=== PATIENT | female | born 1990 | race Caucasian/White ===

== ENCOUNTER 2018-07-16 11:17 | Emergency (ER) | payer MEDICAID ==
[~2018-07-16] VITALS: Ht 167.6 cm; Wt 99.6 kg
[~2018-07-16 11:17] MED LIST: AMOX500C2 PO
[2018-07-16 11:24] VITALS: Ht 167.6 cm; Wt 99.6 kg
[2018-07-16] MEDS ORDERED: ONDANSETRON (ODT) 4 MG TAB ODT STA (12:32)
[2018-07-16] MEDS ORDERED: HYDROCODONE/APAP (5/325) TAB PO ONE (13:00)
[2018-07-16] MEDS ORDERED: IBUP-1542 PO (13:46)
[2018-07-16] MEDS ORDERED: HYDR-4011 PO (13:46)
[2018-07-16] MEDS ORDERED: ONDA8TAB14 PO (13:46)
--- NOTE | 2018-07-16 13:52 | ERD ---
ER Documentation Chief Complaint Chief Complaint Complains of abdominal that radiats to the left side since this am HPI 28-year-old female presents with right upper quadrant abdominal pain since this morning. She has nausea without vomiting. No started after eating. Denies any previous history of gallstones. Denies lower abdominal pain, fevers, diarrhea, urinary complaints. ROS All systems reviewed and are negative except as per history of present illness. Medications Home Meds Active Scripts Ibuprofen* (Motrin*) 600 Mg Tab, 600 MG PO Q6, #20 TAB Prov:MARIE SHEPPARD MD 07/16/18 Hydrocodone/Acetaminophen (Sallis 5-325 Tablet) 1 Each Tablet, 1 TAB PO Q6H PRN for PAIN, #12 TAB Prov:MARIE SHEPPARD MD 07/16/18 Ondansetron (Ondansetron Odt) 8 Mg Tab.rapdis, 8 MG PO Q6H PRN for NAUSEA AND/OR VOMITING, #10 TAB Prov:MRAIE SHEPPARD MD 07/16/18 Amoxicillin* (Amoxicillin*) 500 Mg Cap, 500 MG PO TID for 7 Days, CAP Prov:JUNIOR SYKES 05/11/15 Allergies Allergies: Coded Allergies: No Known Allergy (Unverified , 07/16/18) PMhx/Soc History of Surgery: No Anesthesia Reaction: No Hx Neurological Disorder: No Hx Respiratory Disorders: No Hx Cardiac Disorders: No Hx Psychiatric Problems: No Hx Miscellaneous Medical Probl: No Hx Alcohol Use: No Hx Substance Use: No Hx Tobacco Use: No Smoking Status: Never smoker FmHx Family History: No diabetes, No coronary disease, No other Physical Exam Vitals Vital Signs Date Temp Pulse Resp B/P (MAP) Pulse Ox O2 O2 Flow FiO2 Time Delivery Rate 07/16/18 97.8 86 20 126/66 98 Room Air 13:54 (86) 07/16/18 98.1 77 20 132/62 94 11:24 (85) Physical Exam Const: No acute distress Head: Atraumatic Eyes: Normal Conjunctiva ENT: Normal External Ears, Nose and Mouth. Neck: Full range of motion. No meningismus. Resp: Clear to auscultation bilaterally Cardio: Regular rate and rhythm, no murmurs Abd: Soft, positive Alonso sign. No tenderness McBurney's point. No rebound. Non distended. Normal bowel sounds Skin: No petechiae or rashes Back: No midline or flank tenderness Ext: No cyanosis, or edema Neur: Awake and alert Psych: Normal Mood and Affect Result Diagram: 07/16/18 1256 07/16/18 1256 Results 24 hrs Laboratory Tests Test 07/16/18 12:56 07/16/18 12:57 07/16/18 13:07 White Blood Count 8.9 10^3/ul Red Blood Count 4.92 10^6/ul Hemoglobin 15.1 g/dl Hematocrit 45.2 % Mean Corpuscular Volume 91.9 fl Mean Corpuscular Hemoglobin 30.7 pg Mean Corpuscular 33.4 g/dl Hemoglobin Concent Red Cell Distribution Width 12.8 % Platelet Count 350 10^3/UL Mean Platelet Volume 9.9 fl Immature Granulocytes % 0.100 % Neutrophils % 54.8 % Lymphocytes % 38.1 % Monocytes % 4.4 % Eosinophils % 1.9 % Basophils % 0.7 % Nucleated Red Blood Cells % 0.0 /100WBC Immature Granulocytes # 0.010 10^3/ul Neutrophils # 4.9 10^3/ul Lymphocytes # 3.4 10^3/ul Monocytes # 0.4 10^3/ul Eosinophils # 0.2 10^3/ul Basophils # 0.1 10^3/ul Nucleated Red Blood Cells # 0.0 10^3/ul Sodium Level 143 mmol/L Potassium Level 4.1 mmol/L Chloride Level 103 mmol/L Carbon Dioxide Level 25 mmol/L Anion Gap 15 Blood Urea Nitrogen 15 mg/dl Creatinine 0.54 mg/dl Est Glomerular Filtrat > 60 mL/min Rate mL/min Glucose Level 83 mg/dl Calcium Level 9.9 mg/dl Total Bilirubin 0.3 mg/dl Direct Bilirubin 0.00 mg/dl Indirect Bilirubin 0.3 mg/dl Aspartate Amino 24 IU/L Transf (AST/SGOT) Alanine 45 IU/L Aminotransferase (ALT/SGPT) Alkaline Phosphatase 136 IU/L Total Protein 8.1 g/dl Albumin 4.6 g/dl Globulin 3.50 g/dl Albumin/Globulin Ratio 1.31 Lipase 80 U/L Urine Color YELLOW Urine Clarity SLIGHTLY CLOUDY Urine pH 5.0 Urine Specific [place] 1.025 Urine Ketones NEGATIVE mg/dL Urine Nitrite POSITIVE mg/dL Urine Bilirubin NEGATIVE mg/dL Urine Urobilinogen NEGATIVE mg/dL Urine Leukocyte Esterase NEGATIVE Melissa/ul Urine Microscopic RBC 18 /HPF Urine Microscopic WBC 4 /HPF Urine Squamous Epithelial Cells FEW /HPF Urine Bacteria FEW /HPF Urine Mucus FEW /HPF Urine Hemoglobin 2+ mg/dL Urine Glucose NEGATIVE mg/dL Urine Total Protein NEGATIVE mg/dl POC Beta HCG, Qualitative NEGATIVE Current Medications Medications Dose Sig/Raghav Start Time Status Last (Trade) Ordered Route PRN Stop Time Admin Dose Reason Admin 1 tab ONCE ONCE 07/16/18 DC 07/16/18 Acetaminophen PO 13:00 13:05 / 07/16/18 13:01 Hydrocodone Bitart (Sallis (5/325)) Ondansetron 8 mg ONCE STAT 07/16/18 DC 07/16/18 HCl (Zofran ODT 12:32 13:04 Odt) 07/16/18 12:34 Procedures/MDM Right upper quadrant ultrasound shows gallstones without aiden signs of cholecystitis. She has mild borderline thickening. CBC, CMP showed low sodium acute abnormalities and lipase is normal. Urine shows nitrites but no leukocyte esterase or white blood cells. UTI given absence of symptoms and presenting complaints. Patient was given Sallis and Zofran. Patient presents with right upper quadrant abdominal pain with signs of biliary colic without current signs to suggest significant cholecystitis, choledocholithiasis, there is no signs or symptoms of appendicitis, surgical abdomen. She will treated with recommendations for avoidance of fatty food, short course of Sallis, Zofran, recommendations for primary care follow-up and general surgery evaluation. She was advised to return for fevers, vomiting, worsening pain, new worsening symptoms. Departure Diagnosis: Primary Impression: Gallstones Additional Impression: Abdominal pain Abdominal location: right upper quadrant Qualified Codes: R10.11 - Right upper quadrant pain Condition: Stable Patient Instructions: Abdominal Pain, Gallstones Referrals: JEFRY DIAZ MD, KAMBIZ M.D. LOMIS, THOMAS MD Additional Instructions: Pain likely from gallstones seen on ultrasound. Recheck for fevers, vomiting, worsening pain. See general surgeon for evaluation for gallbladder removal. May need authorization from primary doctor for general surgery visit. MARIE SHEPPARD MD Jul 16, 2018 13:52
[2018-07-16 13:54] VITALS: BP 126/66; PULSE 86; RESP 20
== END 2018-07-16 14:02 | disposition home or self-care (01) ==
LOC: FTE 11:17
DX: K80.20 Calculus of gallbladder without cholecystitis without obstruction (principal)
CPT/HCPCS: 76705; 80053; 81001; 81025; 83690; 85025; Z7610; 36415

== ENCOUNTER 2018-10-08 07:33 | Day surgery (SDC) | payer SELFPAY ==
[~2018-10-08] VITALS: Ht 157.5 cm; Wt 98.3 kg
[2018-10-08] VITALS (12 sets, daily range): BP systolic 135–149; BP diastolic 66–84; PULSE 68–76; RESP 17–24; Ht 157.5 cm; Wt 98.3 kg
[~2018-10-08 07:33] MED LIST changes: +CEFAZOLIN 2 GM/50 ML (PMX) 50 ML IVPB ONE; +HYDR-4011 PO; +IBUP-1542 PO; +ONDA8TAB14 PO; +SOD CHLORIDE 0.9% 1,000 ML IV ONE
[2018-10-08] MEDS ORDERED: BUPIVACAINE 0.25%/EPI (SDV) 30 ML INJ ONE (10:42)
--- NOTE | 2018-10-08 10:49 | PREAC ---
Date/Time of Note Date/Time of Note DATE: 10/08/18 TIME: 10:47 Anesthesia Eval and Record Evaluation Time Pre-Procedure Interview DATE: 10/08/18 TIME: 10:47 Age 28 Sex female NPO: 8 hrs Preoperative diagnosis cholelithiasis Planned procedure lap rivera Past Medical History Past Medical History: Includes GI: Obesity Surgery & Anesthesia Issues No known issue Meds Anticoagulation: No Beta Casey within 24 hr: No Reason Beta Casey not given: Pt. not on B-Casey Discontinued Scripts Ibuprofen* (Motrin*) 600 Mg Tab, 600 MG PO Q6, #20 TAB Prov:MARIE SHEPPARD MD 07/16/18 Hydrocodone/Acetaminophen ([place] 5-325 Tablet) 1 Each Tablet, 1 TAB PO Q6H PRN for PAIN, #12 TAB Prov:MARIE SHEPPARD MD 07/16/18 Ondansetron (Ondansetron Odt) 8 Mg Tab.rapdis, 8 MG PO Q6H PRN for NAUSEA AND/OR VOMITING, #10 TAB Prov:MARIE SHEPPARD MD 07/16/18 Amoxicillin* (Amoxicillin*) 500 Mg Cap, 500 MG PO TID for 7 Days, CAP Prov:JUNIOR SYKES 05/11/15 Current Medications Sodium Chloride 1,000 ml @ 75 mls/hr [id number] ONCE IV ; Start 10/08/18 at 07:30; Stop 10/08/18 at 20:49 Meds reviewed: Yes Allergies Coded Allergies: No Known Allergy (Unverified , 10/08/18) Allergies Reviewed: Yes Labs/Studies Labs Reviewed: Reviewed by anesthesiologist test: Negative Studies: ECG (n/a), CXR (n/a) Pre-procedure Exam Last vitals Vital Signs Date Temp Pulse Resp B/P (MAP) Pulse Ox O2 O2 Flow FiO2 Time Delivery Rate 10/08/18 97.7 73 18 136/66 98 Room Air 08:17 (89) Airway: Adequate mouth opening Mallampati: Mallampati I Teeth: Normal Lung: Normal Heart: Normal ASA Physical Status ASA physical status: 1 Emergency: None Planned Anesthetic General/MAC: ETT Nerve block: TAP (bilateral) Planned Pain Management Sub-arachniod narcotics, Single shot nerve block Pre-operative Attestations Prior to commencing anesthesia and surgery, the patient was re-evaluated, there was verification of: *The patient's identity *The results of appropriate recent lab work and preoperative vital signs *The above evaluation not changing prior to induction *Anesthetic plan, risk benefits, alternative and complications discussed with patient/family; questions answered; patient/family understands, accepts and wishes to proceed. JAMILA HERNANDEZ MD Oct 08, 2018 10:49
[2018-10-08] MEDS ORDERED: GLYCOPYRROLATE 0.4 MG INJ ONE (10:59)
[2018-10-08] MEDS ORDERED: NEOSTIGMINE 3 MG/3 ML SYRINGE ONE (10:59)
[2018-10-08] MEDS ORDERED: ROCURONIUM 50 MG INJ ONE ×2 (10:59→12:13)
[2018-10-08] MEDS ORDERED: METOCLOPRAMIDE 10 MG INJ ONE (10:59)
[2018-10-08] MEDS ORDERED: ONDANSETRON 4 MG INJ ONE (10:59)
[2018-10-08] MEDS ORDERED: ROPIVACAINE 0.5 % 30 ML VIAL ONE (10:59)
[2018-10-08] MEDS ORDERED: PROPOFOL 20 ML ONE (10:59)
[2018-10-08] MEDS ORDERED: MIDAZOLAM 1 MG/ML 2 ML INJ ONE (10:59)
[2018-10-08] MEDS ORDERED: MEPERIDINE 25 MG INJ IV PRN (11:00)
[2018-10-08] MEDS ORDERED: HYDROmorphONE 1 MG/5 ML IV SYRINGE IV PRN ×3 (11:00)
[2018-10-08] MEDS ORDERED: KETOROLAC 30 MG INJ IV PRN ×2 (11:00→12:30)
[2018-10-08] MEDS ORDERED: DIPHENHYDRAMINE 50 MG INJ IV PRN (11:00)
[2018-10-08] MEDS ORDERED: ONDANSETRON 4 MG INJ IV PRN ×2 (11:00→12:30)
[2018-10-08] MEDS ORDERED: FENTAnyl 50 MCG/ML VIAL IV PRN ×2 (11:00)
[2018-10-08] MEDS ORDERED: OXYCODONE/ACETAMINOPHEN (5/325) TAB PO PRN ×2 (11:00)
[2018-10-08] MEDS ORDERED: KETOROLAC 30 MG INJ ONE (12:06)
[2018-10-08] MEDS ORDERED: FENTAnyl 50 MCG/ML VIAL ONE (12:18)
--- NOTE | 2018-10-08 12:23 | OPR ---
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 The patient had clinical signs and symptoms of biliary colic and chronic cholecystitis which was confirmed via an ultrasound which showed large gallstone within the gallbladder neck. The patient was scheduled for laparoscopic cholecystectomy; possible open as definitive treatment to prevent further sequelae of gallstone disease which include but are not limited to: Gangrenous cholecystitis, choledocholithiasis, gallstone pancreatitis, ascending cholangitis, etc. All risks and benefits of the procedure including but not limited to: Wound infection, excessive bleeding, common bile duct injury, postoperative biliary leak, retained common bile duct stone, injury to intra- abdominal organs, conversion to open procedure, possible need for subsequent surgeries, etc. were all explained to the patient in full detail. She fully understood and wished to proceed with the procedure. Informed consent was therefore obtained. Procedure Description The patient was brought to the operating room and placed supine on the operating table. Bilateral sequential compression devices were placed on both lower extremities. A dose of broad-spectrum perioperative intravenous antibiotics was given. After the induction of smooth general endotracheal anesthesia the patient's abdomen was prepped and draped in the standard surgical fashion. A tap block was performed by the anesthesiologist and will be documented separately by her after performance of the surgical timeout a 5 mm incision was made in the inferior umbilicus and a Veress needle was used to access the intra-abdominal cavity atraumatically. Pneumoperitoneum was then obtained and the Veress needle was exchanged for a 5 mm trocar through which a 5 mm laparoscope was placed. Three further working ports were then placed a 12 mm port in the sub-xiphoid region and two 5 mm ports in the right upper quadrant. All port sites were anesthetized with 0.25% Marcaine with epinephrine prior to incision. Using atraumatic graspers the gallbladder was grasped and retracted superiorly and laterally exposing the area of Sosa's pouch. Dissection was begun in this area using a combination of blunt dissection and hook electrocautery. The cystic duct was identified as it entered straight into the neck of the gallbladder. It was dissected free of surrounding tissues and clipped proximally and distally x 3 and transected using EndoShears. Dissection was then continued posteriorly. The cystic artery was identified and dissected free of surrounding tissues. It was transected using the hook electrocautery. Critical view was obtained prior to transection of the cystic duct and cystic artery. The gallbladder was then dissected off the liver bed using electrocautery. Once completely free the gallbladder was placed in an Endo Catch bag and withdrawn through the subxiphoid port site and passed off the field as specimen. Hemostasis was then inspected for and noted to be total. The abdomen was then irrigated with several liters of warm normal saline and the irrigant returned crystal clear. The fascia of the subxiphoid port site was then reapproximated using a suraj-close device. Pneumoperitoneum was then released and all remaining trochars were withdrawn under direct vision. The subcutaneous tissues were irrigated with more warm normal saline. The skin was then reapproximated using 4-0 Monocryl sutures in subcuticular fashion. The incisions were cleaned and Dermabond was applied to the incisions and the patient was awoken from anesthesia and transported to the recovery room in stable condition. All counts were correct at the end of the case x 2. ISI MARTINEZ MD Oct 08, 2018 12:23
[2018-10-08] MEDS ORDERED: HYDROCODONE/APAP (5/325) TAB PO PRN ×2 (12:30)
[2018-10-08] MEDS ORDERED: IBUPROFEN 600 MG TAB PO PRN (12:30)
[2018-10-08] MEDS ORDERED: morphine 2 MG INJ IV PRN (12:30)
[2018-10-08] MEDS: FENTAnyl 50 MCG/ML VIAL IV PRN ×2 (12:42→12:50)
--- NOTE | 2018-10-09 07:55 | PAC ---
Date/Time of Note Date/Time of Note DATE: 10/09/18 TIME: 07:55 Post-Anesthesia Notes Post-Anesthesia Note Last documented vital signs Vital Signs Date Temp Pulse Resp B/P (MAP) Pulse Ox O2 O2 Flow FiO2 Time Delivery Rate 10/08/18 98.9 13:30 10/08/18 98.9 74 18 137/84 99 Room Air 13:20 (101) Activity: WNL Respiratory function: WNL Cardiovascular function: WNL Mental status: Baseline Pain reasonably controlled: Yes Hydration appropriate: Yes Nausea/Vomiting absent: No JAMILA HERNANDEZ MD Oct 09, 2018 07:55
== END 2018-10-08 14:00 | disposition home or self-care (01) ==
LOC: SDS 07:33
PROVIDERS: ATTEND Surgery
DX: K80.10 Calculus of gallbladder with chronic cholecystitis without obstruction (principal)
CPT/HCPCS: 47562; J0690; J1885; J2250; J2405; J2710; J2765; J2795; J3010; 88304